=== PATIENT | male | born 1985 | race Hispanic/Latino ===

== ENCOUNTER 2020-06-25 14:03 | Emergency (ER) | payer OTHER ==
[2020-06-25] MEDS ORDERED: LIDOCAINE HCL MPF 1% 5ML VIAL ONE (14:17)
[2020-06-25] MEDS ORDERED: LIDOCAINE HCL 1% 20 ML VIAL ONE (14:23)
[2020-06-25] MEDS ORDERED: TETANUS/DIPHTHERIA TOXOID [ADULT] 0.5 ML VIAL IM ONE (14:53)
== END 2020-06-25 15:15 | disposition home or self-care (01) ==
LOC: EDH 14:03
DX: S61.210A Laceration without foreign body of right index finger without damage to nail, initial encounter (principal); Z88.0 Allergy status to penicillin; Z72.0 Tobacco use; W45.8XXA Other foreign body or object entering through skin, initial encounter; Y93.89 Activity, other specified; Y92.89 Other specified places as the place of occurrence of the external cause; Y99.8 Other external cause status
CPT/HCPCS: 12042; 90471; 90714; 99284; J3490

== ENCOUNTER 2020-07-05 09:31 | Emergency (ER) | payer SELFPAY | END 2020-07-05 10:34 | disposition home or self-care (01) | LOC: EDH 09:31 | DX: S61.214D Laceration without foreign body of right ring finger without damage to nail, subsequent encounter (principal); Z88.0 Allergy status to penicillin; Z72.0 Tobacco use; X58.XXXD Exposure to other specified factors, subsequent encounter | CPT/HCPCS: 99281 ==